=== PATIENT | female | born 1995 | race Asian ===

== ENCOUNTER 2025-02-28 08:07 | Outpatient (CLI) | payer BC, SELFPAY ==
[2025-02-28 08:49] LABS: Basophils Percent Auto 0.4 % (0.2-1.2); Eosinophils Absolute Auto 0.3 K/mm3 (0-0.3); Eosinophils Percent Auto 6.6 % (0-4.4); Hematocrit 44.5 % (37.0-47.0); Hemoglobin 14.5 g/dL (12.0-15.0); Lymphocytes Absolute Auto 1.67 K/mm3 (0.9-3.2); Lymphocytes Percent Auto 35.3 % (18.3-44.2); Mean Corpuscular HGB Conc 32.6 g/dl (32-36); Mean Corpuscular Volume 92.1 fl (80-100); Mean Platelet Volume 9.7 fl (7.4-10.4); Monocytes Absolute Auto 0.4 K/mm3 (0.1-0.6); Monocytes Percent Auto 7.6 % (2.6-8.5); Neutrophils Absolute Auto 2.4 K/mm3 (1.3-6.7); Neutrophils Percent Auto 50.1 % (45.5-73.1); Platelet Count Result 215 k/mm3 (150-375); Red Blood Count 4.83 M/mm3 (4.2-5.4); Red Cell Distribution Width 11.4 % (11.5-14.5); White Blood Count 4.7 K/mm3 (4.5-10.0)
[2025-02-28 09:01] LABS: Glucose 85 mg/dL (65-110)
[2025-02-28 09:44] LABS: Free T4 Free Thyroxine 0.88 ng/dL (0.78-2.19)
[2025-03-01 07:18] LABS: DHEA-Sulfate 118 mcg/dL (14-349); FSH 5.6 mIU/mL
[2025-03-01 07:38] LABS: Insulin Level Total 2.7 uIU/mL
[2025-03-04 10:59] LABS: Testosterone Total 66 ng/dL (2-45)
== END 2025-02-28 08:08 | disposition home or self-care (01) ==
PROVIDERS: Visit Provider Nurse Practitioner Family
DX: N92.6 Irregular menstruation, unspecified (principal)
CPT/HCPCS: 36415; 82627; 82947; 83001; 83002; 83498; 83525; 84146; 84403; 84439; 84443; 85025

== ENCOUNTER 2025-03-19 15:21 | Outpatient (CLI) | payer BC, SELFPAY ==
--- NOTE | ~2025-03-19 | US_ITS ---
Pelvic ultrasound. Clinical History: Irregular menses Technique: Realtime transabdominal and transvaginal scanning of the pelvis was performed. Color flow Doppler and Doppler spectral analysis were performed. Findings: The uterus is anteverted. The endometrial stripe has a thickness of 3 mm. No focal mass is identified. The right ovary measures 2.6 x 2.5 x 2.0 cm. No significant right ovarian or adnexal mass is seen. The left ovary measures 2.2 x 2.8 x 3.6 cm. No significant left ovarian or adnexal mass is seen. There are small peripherally oriented follicular cysts in both ovaries. There is no evidence of free fluid in the cul de sac. Impression: Morphologic appearance of the ovaries raises the possibility of PCOS. Correlate clinically. Reviewed, dictated and finalized at [facility]. Impression: Morphologic appearance of the ovaries raises the possibility of PCOS. Correlate clinically.
== END 2025-03-19 15:22 | disposition home or self-care (01) ==
LOC: MICIMG 15:22
PROVIDERS: PCP Nurse Practitioner Family; Visit Provider Nurse Practitioner Family
DX: N92.6 Irregular menstruation, unspecified (principal)
CPT/HCPCS: 76830; 76856